=== PATIENT | male | born 1945 | race Caucasian/White ===

== ENCOUNTER 2019-10-09 12:37 | Emergency (ER) | payer MEDICARE, SELFPAY ==
[2019-10-09 12:39] VITALS: BP 133/69; PULSE 87; RESP 20; TEMP 36.8; O2SAT 98; BMI 24.5
--- NOTE | 2019-10-09 13:02 | EKG12_ITS ---
Test Reason : SOB Blood Pressure : / mmHG Vent. Rate : 063 BPM Atrial Rate : 063 BPM P-R Int : 218 ms QRS Dur : 094 ms QT Int : 384 ms P-R-T Axes : 026 -22 -04 degrees QTc Int : 392 ms Sinus rhythm with 1st degree A-V block Otherwise normal ECG Confirmed by MARYJO POSEY ([id number]), supervising editor news reel HELLEN MCCORMACK ([id number]) on 10/10/2019 3:01:24 PM Referred By: GEORGE Confirmed By:MARYJO POSEY
--- NOTE | 2019-10-09 13:02 | RAD_ITS ---
EXAM DESCRIPTION: PORTABLE AP CHEST CLINICAL HISTORY: 74 years Male, SOB, general illness x 1 week SOB, general illness x 1 week COMPARISON: None FINDINGS: The thorax is intact. The heart and mediastinum appear to be within normal limits. In the right lung apex there is an ovoid area of increased density with ill-defined hazy margins probably representing a focal pneumonic consolidation. The left lung appears to be normal. RAD/Chest 1 View (Portable) IMPRESSION: A focal pneumonic consolidation is noted in the right upper lobe. Electronically Signed: Fran Springer, at 14:34 EST Tel , Service support ,
[2019-10-09 13:08] VITALS: PULSE 74; RESP 14; TEMP 36.7; O2SAT 100
--- NOTE | 2019-10-09 13:12 | ED.RN ---
NO OLD EKG
[2019-10-09 13:17] VITALS: PULSE 84; RESP 16
[2019-10-09] MEDS: Ipratropium/Albuterol Sulfate 3 ML AMPUL.NEB INHALATION (13:17)
[2019-10-09 13:21] VITALS: O2SAT 100
--- NOTE | 2019-10-09 13:22 | CT_ITS ---
STUDY: CT SOFT TISSUE NECK WITH CONTRAST REASON FOR EXAM: Male, 74 years old. SORE THROAT RADIATION DOSAGE (If Supplied By Facility): CTDIvol = ( 19.75 ) mGy, DLP = ( 626.41 ) mGycm TECHNIQUE: The patient was scanned in a multi-detector CT scanner. High resolution transaxial imaging was performed following intravenous administration of IV 75mL Isovue-300. Sagittal and coronal images were reconstructed. Individualized dose optimization techniques were used for this CT. COMPARISON: None. FINDINGS: Normal bilateral parotid glands. 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 Normal bilateral parapharyngeal spaces. Normal bilateral carotid spaces. Normal bilateral sublingual and submandibular glands and spaces. Normal visualized nasopharynx. Normal retropharyngeal space. Normal perivertebral space. Normal visualized bilateral faucial tonsils. The visualized tongue, tongue base and oropharynx are normal. The visualized cervical lymph nodes (levels I-) are within normal size limits, and maintain normal morphology. There is no demonstrated solid or cystic mass lesion. There is no abnormal contrast enhancement. Normal epiglottis, bilateral vallecula and hypopharynx. The pre-epiglottic and paraglottic adipose spaces are normal. Normal visualized bilateral piriform sinuses, aryepiglottic folds, vocal cords, and arytenoid-cricoid articulations. Normal subglottic trachea. A 1.8 x 1.6 cm masslike lesion seen in the mid right thyroid of uncertain etiology. A thyroid ultrasound is recommended for further evaluation. Left lobe of the thyroid is normal.. Normal visualized pulmonary apices. Normal visualized paranasal sinuses. Normal visualized cervical spine. CT/Soft Tissue Neck WITH Contrast IMPRESSION: 1. Calcium tonsils and cervical soft tissues appear to be normal. 2. A 1.6 x 1.8 cm masslike lesion is seen in the right mid thyroid of uncertain etiology and a thyroid ultrasound is recommended for further evaluation. Electronically Signed: Fran Springer, at 15:02 EST Tel , Service support ,
[2019-10-09 13:26] LABS: Absolute Lymphocyte Count 1.54 X10^3/uL (0.83-4.51); Absolute Neutrophil Count 3.8 X10^3/uL (2.0-7.7); Basophil# 0.03 X10^3/uL; Basophil% 0.5 % (0-1); Eosinophil# 0.11 X10^3/uL; Eosinophils% 1.9 % (0-5); Hemoglobin 12.2 g/dL (13.0-16.5); Lymphocyte # 1.54 X10^3/ul (4.0); Lymphocyte % 26.5 % (19-41); Mean Corpuscular Hgb 32.5 pg (27.0-32.0); Mean Corpuscular Volume 98.7 fL (80-94); Mean Platelet Vol. 9.5 fl (6.2-12.0); Monocyte# 0.35 X10^3/uL; NRBC Flagged by Analyzer 0 % (0-5); Neutrophil # 3.76 X10^3/uL (2.7-7.7); Neutrophil % 64.8 % (47-70); Platelet Count 204 K/mm3 (150-450); RBC Distribution Width CV 12.5 % (11.6-14.6); RBC Distribution Width SD 45.1 fl (35.1-43.9); Red Blood Count 3.75 M/mm3 (4.6-6.2); White Blood Count 5.8 K/mm3 (4.4-11.0)
[2019-10-09 13:44] LABS: BNP,B-Type NATRIURETIC PEPTIDE 39.2 pg/mL (0-100)
[2019-10-09 13:45] LABS: Anion Gap 4 (5-15); BUN 15 mg/dL (7-18); BUN/Creat Ratio 14.4 RATIO (10-20); Calcium,Total 9.1 mg/dL (8.5-10.1); Chloride 109 mmol/L (98-107); Creatinine, Serum 1.04 mg/dL (0.70-1.30); EST Glomerular Filtration Rate 74 mL/min (>60); Est Glom Filt Rate - Afr Amer 90 mL/min (>60); Estimated Creatinine Clearance 63.26 ml/min; Glucose 95 mg/dL (74-106); Sodium Level 141 mmol/L (136-145)
[2019-10-09 15:00] VITALS: BP 126/87; PULSE 74; RESP 16; O2SAT 98
--- NOTE | 2019-10-09 15:35 | ED.VIS.GEN ---
History of Present Illness Chief Complaint: Shortness of Breath Informant: Patient Onset: Weeks Maximum Severity: Mild Narrative: Fever cough sore throat runny nose body aches for 2 weeks, history of CAD that is stable no history of cardiopulmonary disease otherwise, history of COPD or asthma, He reports that basically for the last week she has had harsh cough fever sore throat no flu vaccination, normal bowel bladder habits cough occasionally productive usually dry Past Medical History - Allergies and Home Meds Allergies/Adverse Reactions: Allergies No Known Allergies Allergy (Verified 10/09/19 13:06) Primary Care Physician: Care Physician,No Primary [Primary Care Provider] - Past Medical History: - - History of CAD he indicates he has [place] new blood vessels perfusing areas of CAD Smoking Status: Former smoker Review of Systems General: Denies: Chills, Fever, Sweats Eyes: Denies: Visual changes - bilaterally, Diplopia ENT: Denies: Rhinorrhea, Sore throat Cardiovascular: Denies: Chest pain, Palpitations Respiratory: Reports: Dyspnea, Cough. Denies: Dyspnea on exertion Gastrointestinal: Denies: Abdominal pain, Nausea, Vomiting, Diarrhea, Melena, Hematochezia Genitourinary: Denies: Dysuria, Hematuria, Frequency Musculoskeletal: Denies: Back pain, Extremity Pain Skin: Denies: Rash, Wounds Neurological: Denies: Headache, Weakness, Numbness Physical Exam Vital Signs/Narrative: Vital Signs Temp Pulse Resp BP Pulse Ox 10/09/19 15:00 74 16 126/87 H 98 10/09/19 13:17 84 16 10/09/19 13:08 98.1 F 74 14 100 10/09/19 12:39 98.2 F 87 20 H 133/69 H 98 General: Well nourished, Well developed, No Acute Distress Head: Normocephalic, Atraumatic Eyes: Perrl, EOMI ENT: Moist mucous membranes, No rhinorrhea Neck: Supple, Nontender Cardiovascular: Regular rate, Regular rhythm, No murmurs Respiratory: No distress, CTA bilaterally, Chest nontender Abdomen: Soft, Nontender, Nondistended, Normal bowel sounds Back: Nontender, Normal Inspection Extremities: Nontender, No edema Skin: Normal color, No rash Neurological: Alert, Oriented x3, Cranial nerves II-XII grossly intact, Normal Strength, Normal Sensation Psychological: Normal affect, Normal Mood Diagnostic/Tx/Re-eval - Medical Decision Making Patient is in no distress his vital signs are unremarkable his pulse ox is 99% is afebrile, His EKG shows a sinus rhythm rate of about 60 no acute injury pattern intervals within normal range His chest x-ray shows a right upper lobe infiltrate, his labs are generally unremarkable, CT of the neck soft tissue related to his severe sore throat was done and it shows a 2 cm nodule involving the right thyroid cannot exclude mass airway epiglottis normal, strep throat screen came back positive On reevaluation patient is resting comfortably bed discussed all the above discussed inpatient versus outpatient management he would like to go home he will be started on Levaquin for all the above, he understands need for close outpatient follow-up and will see his PCP, with regard to the thyroid lesion he indicates he has had that in the past he is under the care of director of community life at 1 point time in [facility] who did testing and told him it needed follow-up and he will follow-up for that condition and return for change in symptoms Home stable Impression final right upper lobe pneumonia, strep pharyngitis positive, 2 cm thyroid lesion ED Disposition - Plan for ED Patient: Diagnosis: Pneumonia, strep pharyngitis Instructions: PNEUMONIA (Adult), PHARYNGITIS, Strep (Confirmed) Prescriptions: Levofloxacin 750 mg PO DAILY #10 tab Prescription Printed Naproxen [Naprosyn] 500 mg PO BID PRN #20 tab Prescription Printed Hydrocodone Bitart/Apap 5-325 [[place] 5MG-325MG] 1 tab PO Q4H PRN PRN 2 Days #7 tab PRN Reason: Pain Prescription Printed Albuterol Inhaler [Ventolin Hfa] 1 - 2 puff INHALATION Q4H PRN PRN #1 inhaler PRN Reason: Wheezing Prescription Printed Referrals: Care Physician,No Primary [Primary Care Provider] -
[2019-10-09] MEDS: levoFLOXacin 750 MG Tablet PO (16:01)
== END 2019-10-09 16:04 | disposition home or self-care (01) ==
LOC: ED 13:29
PROVIDERS: Emergency Provider Emergency Medicine
DX: J18.9 Pneumonia, unspecified organism (principal); J02.0 Streptococcal pharyngitis; E04.1 Nontoxic single thyroid nodule; I25.10 Atherosclerotic heart disease of native coronary artery without angina pectoris; J44.9 Chronic obstructive pulmonary disease, unspecified; Z87.891 Personal history of nicotine dependence
CPT/HCPCS: 70491; 71045; 80048; 83880; 84484; 85025; 87804; 87880; 93005; 94640; 96360; 99285; J7040; Q9967; A4216

== ENCOUNTER 2019-10-30 17:28 | Emergency (ER) | payer MEDICARE, SELFPAY ==
[2019-10-30 17:29] VITALS: BP 129/85; PULSE 82; RESP 16; TEMP 37.1; O2SAT 99; BMI 24.7
--- NOTE | 2019-10-30 17:46 | RAD_ITS ---
STUDY: X-RAY CHEST REASON FOR EXAM: Male, 74 years old. Cough. Shortness of breath. TECHNIQUE: Frontal and lateral views of the chest COMPARISON: 10/09/2019 FINDINGS: The lungs are clear. There are no pleural effusions. There is no pneumothorax. The heart is normal in size. The visualized osseous structures are within normal limits. RAD/Chest PA and Lateral IMPRESSION: No acute thoracic pathology. Electronically Signed: Ruben Kumar, at 18:26 EDT Tel , Service support ,
--- NOTE | 2019-10-30 17:50 | EKG12_ITS ---
Test Reason : CP Blood Pressure : / mmHG Vent. Rate : 088 BPM Atrial Rate : 088 BPM P-R Int : 178 ms QRS Dur : 092 ms QT Int : 352 ms P-R-T Axes : 033 -36 011 degrees QTc Int : 425 ms Sinus rhythm with frequent Premature ventricular complexes Left axis deviation Possible Inferior infarct , age undetermined Abnormal ECG Confirmed by ARI HAGAN, ANDRA ([id number]), multimedia editor HELLEN MCCORMACK ([id number]) on 11/05/2019 11:17:53 AM Referred By: SYLWIA Confirmed By:NONI CHAPMAN MD
--- NOTE | 2019-10-30 17:51 | ED.DCSUM_ITS ---
History of Present Illness Chief Complaint: Chest Pain Informant: Patient Onset: Weeks - 2 Timing: Continuous Quality: Aching Location: Right Chest - without radiation Current Severity: Moderate Maximum Severity: Moderate Worsened By: Breathing. Not Worsened By: Movement of Arm, Movement of Torso Relieved By: Rest Associated Symptoms: Nausea, Dyspnea. Negative for: Vomiting, Diaphoresis, Cough, Fever, Lightheadedness, Palpitations Narrative: Patient states he is having pleuritic right-sided chest pain that is similar to when he had pneumonia last month, he was admitted to the hospital. All of the symptoms went away, he never had a cough and does not now. He has developed the pain again it has been present for 2 weeks now. He had fevers before but not in the past 2 weeks. He has had no travel out of the area recently. He has had some mild shortness of breath. No leg swelling or pain. No history of DVT or PE and takes no anticoagulants. Some nausea, with decreased appetite but no vomiting or abdominal pain. States he has a history of coronary disease, has never had intervention and does not have any history of lung disease and stop smoking 23 years ago. - Past Medical History (1) CAD (coronary artery disease), [place] coronary artery Status: Chronic Past Medical History - Allergies and Home Meds Allergies/Adverse Reactions: Allergies No Known Allergies Allergy (Verified 10/30/19 17:28) Primary Care Physician: [facility] Doctor,Out of [NON-STAFF] - Lives: Alone Smoking Status: Former smoker Review of Systems General: Denies: Chills, Fever, Sweats Eyes: Denies: Visual changes - bilaterally, Diplopia ENT: Denies: Bilateral ear pain, Rhinorrhea, Sore throat Cardiovascular: Reports: Chest pain. Denies: Palpitations Respiratory: Reports: Dyspnea. Denies: Cough, Dyspnea on exertion, Orthopnea Gastrointestinal: Reports: Nausea, Constipation. Denies: Abdominal pain, Vomiting, Diarrhea, Melena, Hematochezia Genitourinary: Denies: Dysuria, Hematuria, Frequency Musculoskeletal: Denies: Back pain, Swelling, Extremity Pain Skin: Denies: Rash, Wounds Neurological: Denies: Headache, Weakness, Numbness Physical Exam Vital Signs/Narrative: Vital Signs Temp Pulse Resp BP Pulse Ox 10/30/19 17:29 98.8 F 82 16 129/85 H 99 Inital Vital Signs reviewed: Yes General: Well nourished, Well developed, No Acute Distress Head: Normocephalic, Atraumatic Eyes: Perrl, EOMI ENT: Moist mucous membranes, No rhinorrhea Neck: Supple, Nontender, No lymphadenopathy, No JVD Cardiovascular: Regular rate, Regular rhythm, No murmurs Respiratory: No distress, CTA bilaterally, Chest nontender Abdomen: Soft, Nontender, Nondistended, Normal bowel sounds Back: Nontender, Normal Inspection. Negative for: CVA tenderness Extremities: Nontender, No edema. Negative for: Calf Tenderness Skin: Normal color, No rash, No Trauma Neurological: Alert, Oriented x3, Cranial nerves II-XII grossly intact, Normal Strength, Normal Sensation Psychological: Normal affect, Normal Mood Diagnostic/Tx/Re-eval Impressions Chest X-Ray 10/30/19 17:46 IMPRESSION: No acute thoracic pathology. Electronically Signed: Ruben Stacy, at 18:26 EDT Tel , Service support , Chest CTA 10/30/19 20:02 IMPRESSION: Mild emphysema. No pulmonary infiltrates or pleural effusions. No evidence of pulmonary embolus. No evidence of thoracic aortic aneurysm or dissection. Coronary artery disease. Electronically Signed: Rubenraina Kumar, at 20:38 EDT Tel , Service support , 10/30/19 17:46 Chest PA and Lateral [RAD] Stat 10/30/19 20:02 CTA Chest W/WO Contrast [CT] Stat 10/30/19 18:00 Mucosa - Nasopharyngeal Influenza Types A,B Direct FA (KELLEY) - Final Laboratory Results 10/30/19 10/30/19 10/30/19 17:35 17:35 17:35 WBC 4.3 L RBC 3.92 L Hgb 12.6 L Hct 37.8 L MCV 96.4 H MCH 32.1 H MCHC 33.3 RDW Std Deviation 44.0 H RDW Coeff of [place] 12.5 Plt Count 205 MPV 9.5 Immature Gran % (Auto) 0.200 Neut % (Auto) 57.3 Lymph % (Auto) 30.3 [place] % (Auto) 11.5 H Eos % (Auto) 0.5 Baso % (Auto) 0.2 Absolute Neuts (auto) 2.4 Absolute Lymphs (auto) 1.29 Nucleated RBC % 0 D-Dimer Quant (PE/DVT) 1.62 H* Sodium 142 Potassium 3.6 Chloride 107 Carbon Dioxide 26.0 Anion Gap 9 BUN 22 H Creatinine 1.06 Estim Creat Clear Calc 62.07 Est GFR (MDRD) Af Amer 88 Est GFR (MDRD) Non-Af 73 BUN/Creatinine Ratio 20.8 H Glucose 99 Calcium 9.1 Troponin I < 0.015 - Rhythm Strip Rhythm Strip: Sinus Rhythm Rate: 88 Ectopy: PVC(s) - EKG Initial EKG Interpretation: Sinus Rhythm, No Acute Injury Pattern, - - left axis. PVCs. Treatment: Toradol IV REILLY Risk: Age >/= 65, H/O CAD Score: 2 - Medical Decision Making Patient's cardiac work-up is negative. Since his chest x-ray was normal and did not reveal an explanation for his symptoms, d-dimer was added onto his blood work and is significantly elevated at 1.6. Therefore CT angiography of the chest was obtained, it shows no evidence of a PE, infiltrate, or other acute pathology. Therefore, I suspect he has pleurisy causing his discomfort. He was given a dose of Toradol, and he is comfortable with being discharged home. He asks for a jar of magnesium citrate for his constipation which was also given to him. Patient does not have COVID-19 exposure and is not critically ill or clinically septic, has not traveled to/from a region with a CDC level 2 or 3 travel health notice, vital signs are stable without hypoxia, is not ill enough to require admission to the hospital, and at this time does not meet current [facility] requirements for testing for COVID-19. He will follow up with his doctor. ED Disposition - Plan for ED Patient: Disposition: Home or Assisted Living Diagnosis: Pleurisy Instructions: Pleurisy Referrals: [facility] Doctor,Out of [NON-STAFF] - 1 Week if not improving
[2019-10-30 18:00] LABS: Absolute Lymphocyte Count 1.29 X10^3/uL (0.83-4.51); Absolute Neutrophil Count 2.4 X10^3/uL (2.0-7.7); Basophil# 0.01 X10^3/uL; Basophil% 0.2 % (0-1); Eosinophil# 0.02 X10^3/uL; Eosinophils% 0.5 % (0-5); Hematocrit 37.8 % (40-54); Hemoglobin 12.6 g/dL (13.0-16.5); Lymphocyte # 1.29 X10^3/ul (4.0); Lymphocyte % 30.3 % (19-41); Mean Corp Hgb Conc 33.3 g/dL (32-36); Mean Corpuscular Hgb 32.1 pg (27.0-32.0); Mean Corpuscular Volume 96.4 fL (80-94); Mean Platelet Vol. 9.5 fl (6.2-12.0); Monocyte# 0.49 X10^3/uL; Monocyte% 11.5 % (0-10); NRBC Flagged by Analyzer 0 % (0-5); Neutrophil # 2.44 X10^3/uL (2.7-7.7); Neutrophil % 57.3 % (47-70); Platelet Count 205 K/mm3 (150-450); RBC Distribution Width CV 12.5 % (11.6-14.6); Red Blood Count 3.92 M/mm3 (4.6-6.2); White Blood Count 4.3 K/mm3 (4.4-11.0)
[2019-10-30] MEDS: 0.9% Normal Saline 1,000 ML 150 ML IV (18:01)
[2019-10-30 18:13] LABS: Anion Gap 9 (5-15); BUN 22 mg/dL (7-18); BUN/Creat Ratio 20.8 RATIO (10-20); Calcium,Total 9.1 mg/dL (8.5-10.1); Chloride 107 mmol/L (98-107); Creatinine, Serum 1.06 mg/dL (0.70-1.30); EST Glomerular Filtration Rate 73 mL/min (>60); Est Glom Filt Rate - Afr Amer 88 mL/min (>60); Estimated Creatinine Clearance 62.07 ml/min; Glucose 99 mg/dL (74-106); Potassium 3.6 mmol/L (3.5-5.1); Sodium Level 142 mmol/L (136-145)
[2019-10-30 18:30] VITALS: BP 126/74; PULSE 79; RESP 12; O2SAT 95
[2019-10-30 19:23] VITALS: BP 140/68; PULSE 74; RESP 13; O2SAT 97
[2019-10-30 19:54] LABS: D-Dimer Quantitative (DVT/PE) 1.62 FEU/ug/m (0.27-0.49)
--- NOTE | 2019-10-30 20:02 | CT_ITS ---
STUDY: CTA CHEST REASON FOR EXAM: Male, 74 years old. PLEURITIC CP WITH ELEVATED D-DIMER, SOB ON EXERTION, HTN, RECENT PNEUMONIA RADIATION DOSAGE (If Supplied By Facility): CTDIvol = ( 13.58 ) mGy, DLP = ( 382.77 ) mGycm TECHNIQUE: The examination was performed with the intravenous administration of IV 75mL Isovue-370. Post-processing of the angiographic images was performed, with multiplanar reformation and 3D reconstruction. Individualized dose optimization techniques were used for this CT. COMPARISON: None. FINDINGS: There is a 1.8 cm hypodense nodule in the right lobe of the thyroid which is stable when compared with a neck CT dated 10/09/2019. Normal enhancement of the main pulmonary artery and right and left pulmonary arteries. Normal enhancement of the bilateral peripheral pulmonary arteries. There is no demonstrated pulmonary embolism. Normal thoracic aorta and visualized great vessels. There is no demonstrated aortic dissection. Normal heart and pericardium. There are calcifications of the coronary arteries. Normal mediastinum. Normal hilar regions. Normal visualized trachea and bronchi. The lungs are well expanded. Mild emphysema. No pulmonary infiltrates. Normal pleura. Normal chest wall structures. Normal osseous structures. Normal visualized upper abdomen. CT/CTA Chest W/WO Contrast IMPRESSION: Mild emphysema. No pulmonary infiltrates or pleural effusions. No evidence of pulmonary embolus. No evidence of thoracic aortic aneurysm or dissection. Coronary artery disease. Electronically Signed: Ruben Kumar, at 20:38 EDT Tel , Service support ,
[2019-10-30 20:03] VITALS: BP 129/84; PULSE 78; RESP 23; O2SAT 98
[2019-10-30] MEDS: Ketorolac 15 MG/ML Vial IV (21:06)
[2019-10-30 21:07] VITALS: BP 128/82; PULSE 76; RESP 16; O2SAT 99
[2019-10-30] MEDS: Magnesium Citrate 300 ML 150 ML PO (21:07)
== END 2019-10-30 21:12 | disposition home or self-care (01) ==
PROVIDERS: Emergency Provider Emergency Medicine
DX: R09.1 Pleurisy (principal); I25.10 Atherosclerotic heart disease of native coronary artery without angina pectoris; Z87.891 Personal history of nicotine dependence
CPT/HCPCS: 71046; 71275; 80048; 84484; 85025; 85379; 87804; 93005; 96361; 96374; 99285; J7030; Q9967

== ENCOUNTER 2020-05-05 12:14 | Emergency (ER) | payer MEDICARE, SELFPAY ==
[2020-05-05 12:15] VITALS: BP 129/77; PULSE 95; RESP 18; TEMP 36.6; O2SAT 99; BMI 24.2
--- NOTE | 2020-05-05 12:18 | ED.RN ---
PT REPORTS EXPOSED TO A COVID POSITIVE PERSON GREATER THAN 14 DAYS AGO, THE PERSON WAS OUT OF QUARINTINE.
--- NOTE | 2020-05-05 12:36 | ED.DCSUM_ITS ---
History of Present Illness Chief Complaint: Abd Pain Informant: Patient Narrative: 75-year-old male presents with history of cough for the last 7 days. He states is nonproductive. He has a mildly sore throat. He is not had a fever that he knows of but he states he gets headaches and takes Tylenol and his headaches go away. He does not have myalgias, loss of taste and smell. He does not feel short of breath. He is not having any chest pain. States I am only here to be tested for COVID because my girlfriend wants me to be tested. He also states that he feels otherwise well has been walking about 2 miles a day without difficulty. - Past Medical History (1) CAD (coronary artery disease), [place] coronary artery Status: Chronic Past Medical History - Allergies and Home Meds Allergies/Adverse Reactions: Allergies No Known Allergies Allergy (Verified 05/05/20 12:15) Primary Care Physician: Arely Diaz,Out of [Primary Care Provider] - Past Medical History: - - Reviewed and problem list Surgical History: noncontributory Lives: Spouse/ Significant Other Smoking Status: Former smoker Review of Systems General: Denies: Chills, Fever, Sweats Eyes: Denies: Visual changes - bilaterally, Diplopia ENT: Denies: Rhinorrhea, Sore throat Cardiovascular: Denies: Chest pain, Palpitations Respiratory: Reports: Cough. Denies: Dyspnea, Sputum, Dyspnea on exertion Gastrointestinal: Denies: Abdominal pain, Nausea, Vomiting, Diarrhea, Melena, Hematochezia Genitourinary: Denies: Dysuria, Hematuria, Frequency Musculoskeletal: Denies: Back pain, Extremity Pain Skin: Denies: Rash, Wounds Neurological: Reports: Headache. Denies: Weakness, Numbness Physical Exam Vital Signs/Narrative: Vital Signs Temp Pulse Resp BP Pulse Ox 05/05/20 12:15 97.8 F 95 18 129/77 H 99 Inital Vital Signs reviewed: Yes General: Well nourished, No Acute Distress Head: Normocephalic, Atraumatic Eyes: Perrl, EOMI ENT: Moist mucous membranes, No rhinorrhea Cardiovascular: Regular rate, Regular rhythm Respiratory: No distress, CTA bilaterally Skin: Normal color, No rash. Negative for: Cyanosis Neurological: Alert, Oriented x3 Psychological: Normal affect, Normal Mood Diagnostic/Tx/Re-eval - Medical Decision Making Patient presents for history of cough which he states is now resolving. He has no red flag signs or symptoms. He does not want a chest x-ray he just wants to be tested for COVID and be sent home. He will quarantine until he gets his test results. He is given return precautions. Patient stable for discharge. Impression: 1. Cough ED Disposition - Plan for ED Patient: Disposition: Home or Assisted Living Instructions: ED Upper Resp Infec No Abx Tx Referrals: [facility] Doctor,Out of [Primary Care Provider] -
[2020-05-05 13:05] VITALS: RESP 16
== END 2020-05-05 13:27 | disposition home or self-care (01) ==
LOC: ED 13:18
PROVIDERS: Emergency Provider Student in an Organized Health Care Education/Training Program
DX: R05 Cough (principal); I25.10 Atherosclerotic heart disease of native coronary artery without angina pectoris; Z87.891 Personal history of nicotine dependence
CPT/HCPCS: 87635; 99282; C9803; U0003

== ENCOUNTER 2022-08-31 13:53 | Emergency (ER) | payer MEDICARE, MEDICAID, SELFPAY ==
[2022-08-31 13:55] VITALS: BP 134/86; PULSE 94; RESP 16; TEMP 36.6; O2SAT 98; BMI 23.6
--- NOTE | 2022-08-31 14:57 | ED.VIS.GI ---
HPI HPI - GI History of Present Illness Chief Complaint: Constipation Detail of Chief Complaint: Something nearby hernia scar Informant: patient Abdominal Pain/Flank Pain Onset: Yesterday Context: Sudden Onset Timing: Continuous and Waxes and wanes Quality: Aching and Cramping Location: - (Proximity of hernia scar incision left) Current Severity: Mild Maximum Severity: Moderate Worsened by: - (Palpation); Not Worsened By Car ride, Food or Movement Relieved by: Not Relieved By Antacids, Food, Nothing or Remaining Still Nausea/Vomiting/Emesis GI Symptom: Negative for Nausea or Vomiting Diarrhea/Melena/Hematochezia GI Symptom: Negative for Diarrhea, Melena or Hematochezia Associated Symptoms Associated Symptoms: Negative for Dysuria, Frequency, Hematuria or Urgency Narrative Narrative: Patient is a 76-year-old male with history of coronary disease, hypercholesterolemia, BPH who had a left inguinal hernia repair by Dr. Guzman at [facility] 10 years ago. He now resides in the [facility]. He is a smoker. He states last evening when he was going to the bathroom he felt a ripping tearing sensation. He states he was not able to have bowel movement afterwards. He presents because of pain and would like something done. He denies nausea, vomiting or abdominal distention. Patient denies history of diverticulosis or diverticulitis. Patient denies black or maroon-colored stool. Patient is not on an anticoagulant. Patient denies pain in his scrotum or testicle. He denies pain radiating to the right or to the left flank. He denies dysuria, frequency, urgency or hematuria. He denies history of renal or ureteral lithiasis. There is no history of trauma. He has not noted a rash Prior similar symptoms: Yes (With hernia 10 years ago) Recent Illness/Hospitalization: No (Last visit to the ER/hospital was in 2019) [facility] Medical History (Updated 08/31/22 @ 15:[address] Kwame Pimentel MD) CAD (coronary artery disease) Hyperlipidemia Left inguinal hernia Home Medications isosorbide mononitrate 30 mg tablet,extended release 24 hr 30 mg PO DAILY 10/09/19 [History Last Taken Unknown] nitroglycerin 0.4 mg sublingual tablet 0.4 mg SL PRN PRN chest pain 10/09/19 [History Last Taken Unknown] pramipexole 0.125 mg tablet 1 tab PO DAILY 10/09/19 [History Last Taken Unknown] quetiapine 100 mg tablet 200 mg PO DAILY 10/09/19 [History Last Taken Unknown] rosuvastatin 20 mg tablet 5 mg PO DAILY 10/09/19 [History Last Taken Unknown] tamsulosin 0.4 mg capsule 1 tab PO BID 10/09/19 [History Last Taken Unknown] Cholecalciferol (Vitamin D3) [Vitamin D3] 5,000 unit PO DAILY 10/30/19 [History Last Taken Unknown] Lactobacillus rhamnosus GG 20 billion cell capsule 1 ea PO DAILY 10/30/19 [History Last Taken Unknown] sennosides 8.6 mg-docusate sodium 50 mg tablet 1 tab PO DAILY 10/30/19 [History Last Taken Unknown] Allergy/AdvReac Type Severity Reaction Status Date / Time No Known Allergies Allergy Verified 08/31/22 13:55 Social History (Updated 08/31/22 @ 15:[address] Kwame Pimentel MD) household members: none Smoking Status: Former smoker substance use type: does not use ROS ROS ED Constitutional Constitutional ED: Denies chills, fever(s), subjective, sweats or weight loss ENT ENT ED: Denies ear pain, rhinorrhea or sore throat Cardiovascular Cardiovascular: Denies chest pain, palpitations or racing heartbeat Respiratory/Chest Respiratory/Chest: Denies cough, dyspnea or dyspnea on exertion Gastrointestinal Gastrointestinal: Reports abdominal pain and constipation; Denies diarrhea, melena, nausea or vomiting Genitourinary Genitourinary ED: Denies dysuria, hematuria or urinary frequency Musculoskeletal Musculoskeletal: Denies arthralgias, back pain, myalgias or neck pain Psychiatric Psychiatric: Denies anxiety or depression Endocrine Endocrinology: Denies polydipsia, polyphagia or polyuria EXAM Physical Exam Const Vital Signs: 08/31/22 13:55 Temperature 97.9 F Temperature Source Temporal Pulse Rate 94 Respiratory Rate 16 Blood Pressure 134/86 H Blood Pressure Mean 102 Pulse Ox 98 Oxygen Delivery Method Room Air Negative for well nourished or well developed General Appearance ED: NAD; Negative for well developed or pallor HEENT Reports TM's clear and moist mucous membranes HEENT Narrative: Nares patent. Mucosa moist. Teeth normal. Negative for normocephalic or atraumatic Tympanic Membrane ED: Yes TM's clear Eyes PERRL and EOMs intact bilaterally General Eye ED: Negative for pale conjunctiva Neck no lymphadenopathy, supple and no JVD Resp normal respiratory effort and clear to auscultation bilaterally Cardio regular rate, regular rhythm, S1 normal heart sound, S2 normal heart sound and no murmurs GI non-distended and no masses; Negative for non-tender Auscultation: hypoactive bowel sounds Palpation: soft, tender other (Left inguinal hernia repair site.), guarding LLQ (2D palpation over left inguinal hernia incision site.) and hernia ventral (Left inguinal incision site); Negative for rigid, hepatomegaly, splenomegaly, mass, pulsatile mass or rebound tenderness present Narrative: Testes centered bilaterally. No evidence of direct or indirect hernia. There is no tenderness of the testicles. There is no swelling of the scrotum. Back/Spine no CVA tenderness Lumbar Spine / Lower Back: Negative for lumbar spinal tenderness Extremity full ROM General Extremety ED: Negative for edema or tenderness General Extremity: Negative for edema Neuro CN's II-XII intact bilaterally Skin no wounds General Skin Exam: Negative for jaundice or pallor MDM MDM MDM Narrative Medical decision making narrative: Using outside source patient did have repair of inguinal hernia at [facility] approximately 10 years ago. He has had no recent hospitalizations. Patient's history and physical is consistent with incisional hernia status post left inguinal hernia repair. The hernia was reducible. Patient was referred to Dr. Rodney Lau, who is on for general surgery. Since there is no nausea vomiting distention peritoneal findings laboratory studies and imaging is not required. Discharge Plan Triage Chief Complaint: Constipation ED Provider: MargaritoKwame Dx/Rx/DC Orders Clinical Impression: Incisional hernia, without obstruction or gangrene, History of CAD (coronary artery disease), Hx of hypercholesterolemia, History of BPH Instructions: ED Hernia (Adult) Prescriptions: No Action isosorbide mononitrate 30 mg tablet extended release 24 hr 30 mg PO DAILY Label Comments: TAKE 1 TABLET BY MOUTH ONCE DAILY quetiapine 100 MG tablet 200 mg PO DAILY tamsulosin 0.4 mg capsule 1 tab PO BID pramipexole 0.125 mg tablet 1 tab PO DAILY Label Comments: TAKE 1 TABLET BY MOUTH NIGHTLY nitroglycerin 0.4 MG tablet, sublingual 0.4 mg SL PRN PRN (Reason: chest pain) rosuvastatin 20 MG tablet 5 mg PO DAILY sennosides-docusate sodium 1 EACH tablet 1 tab PO DAILY Lactobacillus rhamnosus GG 1 EACH capsule 1 ea PO DAILY Cholecalciferol (Vitamin D3) [Vitamin D3] 5,000 UNIT capsule 5,000 unit PO DAILY Primary Care Provider: Harsh Rios Referrals: Rodney Lau MD [Med Staff - Active Staff] - 5-7 Days Harsh Rios MD [Primary Care Provider] - Activity Restrictions/Additional Instructions: Return if you have severe pain, there is a bulge in your and able to push it back in, abdominal distention, or nausea and vomiting. Disposition Disposition: Home, Self Care
== END 2022-08-31 15:18 | disposition home or self-care (01) ==
PROVIDERS: Emergency Provider Emergency Medicine; PCP Family Medicine; Visit Provider Emergency Medicine
DX: K43.2 Incisional hernia without obstruction or gangrene (principal); I25.10 Atherosclerotic heart disease of native coronary artery without angina pectoris; Z87.891 Personal history of nicotine dependence
CPT/HCPCS: 99282

== ENCOUNTER 2025-07-30 09:34 | Emergency (ER) | payer MEDICARE, MEDICAID, SELFPAY ==
[2025-07-30 09:34] VITALS: BP 133/84; PULSE 87; RESP 20; TEMP 36.6; O2SAT 100
--- NOTE | 2025-07-30 09:54 | EKG12_ITS ---
Test Reason : SOB Blood Pressure : */* mmHG Vent. Rate : 73 BPM Atrial Rate : 73 BPM P-R Int : 218 ms QRS Dur : 92 ms QT Int : 388 ms P-R-T Axes : 8 -28 52 degrees QTcB Int : 427 ms Sinus rhythm with 1st degree A-V block Otherwise normal ECG Confirmed by Marek Gonzalez ([id number]), field map editor RENEE GONZALES ([id number]) on 07/31/2025 10:21:20 AM Referred By: Confirmed By: Marek Gonzalez
--- NOTE | 2025-07-30 09:56 | ED.VIS.DYS ---
HPI History of Present Illness Chief Complaint: Shortness of Breath Informant: patient Onset/Context/Timing Onset: Weeks (3 weeks.) Context: gradual Timing: Continuous Quality: Positive for Wheezing Current Severity: Mild Relieved by: Nothing Associated Symptoms cough Chest Pain: Positive for None Narrative Narrative: 80-year-old male history of CAD states been short of breath with URI symptoms for the last 3 weeks. Nonproductive cough. Intermittent wheezing. Fever as high as 102. No hemoptysis. No pleuritic chest pain. No leg pain or swelling. Denies any recent hospitalization. PE Risk Factors: Negative for Cancer, Prior DVT or PE, Recent immobilization, Recent surgery or Recent travel Recent Illness/Hospitalization: No PFSH [facility] Medical History Left inguinal hernia Hyperlipidemia CAD (coronary artery disease) Home Medications ?Medication ?Instructions ?Recorded ?Last Taken ?Type nitroglycerin 0.4 mg sublingual 0.4 mg SL PRN PRN chest pain 10/09/19 Unknown History tablet tamsulosin 0.4 mg capsule 1 tab PO BID prostate 10/09/19 07/29/25 History isosorbide mononitrate 60 mg 60 mg PO DAILY heart 07/30/25 07/29/25 History tablet,extended release 24 hr prednisone 20 mg tablet 40 mg (2 x 20 mg) PO DAILY 7 days 07/30/25 Unknown Rx #14 tabs quetiapine 200 mg tablet 200 mg PO DAILY mood 07/30/25 07/29/25 History Allergy/AdvReac Type Severity Reaction Status Date / Time No Known Allergies Allergy Verified 07/30/25 09:36 Social History household members: none Smoking Status: Former smoker substance use type: does not use ROS ROS ED ROS Narrative Cough nonproductive. Fever. Shortness of breath. Wheezing. Constitutional Constitutional ED: Reports fever(s) Eyes Eyes: Denies blurry vision Cardiovascular Cardiovascular: Denies chest pain Respiratory/Chest Respiratory/Chest: Reports cough and dyspnea Gastrointestinal Gastrointestinal: Denies abdominal pain Genitourinary Genitourinary ED: Denies dysuria or hematuria Musculoskeletal Musculoskeletal: Denies arthralgias or back pain Integumentary Denies abscess Neurologic Neurologic: Denies headache(s) Psychiatric Psychiatric: Denies anxiety Endocrine Endocrinology: Denies cold intolerance or heat intolerance Hematologic/Lymphatic Hematologic/Lymphatic: Denies easy bleeding, easy bruising or lymphadenopathy Allergic/Immunologic Allergic/Immunologic ED: Denies mouth swelling, tongue swelling or urticaria EXAM Physical Exam Narrative Exam Narrative: Send 9-year-old male sitting upright in bed vital signs stable afebrile. Pulse ox 100% on room air no signs hypoxia. No distress. H EENT exam pupils round react to light. TMs unremarkable. Moist mucous membranes. Posterior pharynx normal. No trouble swallowing. No stridor or drooling. Neck nontender no lymphadenopathy. Trachea midline. Back nontender. Lungs prolonged expiratory phase few scattered wheezes. No rales or rhonchi. Equal symmetric. Heart regular rhythm rate about 85 no murmur. Chest wall ribs nontender. Abdomen soft nontender. Moving all 4 extremities. Normal strength. Normal range of motion. Nontender no edema. Calves nontender no cords. Neurologically he is awake alert. He is answering questions following commands. Const Vital Signs: 07/30/25 09:34 07/30/25 10:11 07/30/25 11:09 Temperature 97.9 F Temperature Source Oral Pulse Rate 87 75 Respiratory Rate 20 H 16 Respiratory Effort Respiratory Depth Respiratory Pattern Blood Pressure 133/84 H Blood Pressure Mean 100 Pulse Ox 100 Oxygen Delivery Method Room Air Room Air 07/30/25 11:10 07/30/25 11:34 07/30/25 13:00 Temperature Temperature Source Pulse Rate 68 68 Respiratory Rate 20 H Respiratory Effort Normal Non-Labored Respiratory Depth Normal Respiratory Pattern Normal Blood Pressure 153/79 H 150/76 H Blood Pressure Mean 103 100 Pulse Ox 100 100 Oxygen Delivery Method Room Air MDM MDM MDM Narrative Medical decision making narrative: 80-year-old male short of breath nonproductive cough for 3 weeks. Differential would include viral syndrome, bronchitis, pneumonia, cardiac etiology which I do not think this is. Underlying COPD which he tells me he does not have a specific diagnosis for. He quit smoking 40 years ago. Chest x-ray, EKG and labs will be obtained. Repeat exam at 1:36 PM. Patient doing much better. Said aerosols and steroids helped. We went over his test results. He is RSV positive. I explained him he does not need an antibiotic. We placed on prednisone 40 m a day for a week. He said he does not need an inhaler. He will be discharged home with outpatient follow-up. Patient is comfortable with the plan. History & Record Review Discussion w/independent historian: Patient Additional record(s) reviewed:: Prior outpatient record, Prior ED visit and Prior labs Lab Data Attestation: I reviewed the patient's lab results. Lab results narrative: Chest x-ray shows chronic changes. CBC shows white count of 5 H&H 12 and 36. Platelets 202. Consistent with prior. Electrolytes show a gap of 10. Normal BUN of 14 creatinine 1.1. Glucose 115. RSV positive. COVID and flu negative. Labs: Laboratory Results - last 24 hr 07/30/25 11:05 WBC 5.1 RBC 3.73 L Hgb 12.0 L Hct 36.4 L MCV 97.6 H MCH 32.2 H MCHC 33.0 RDW Std Deviation 45.2 H RDW Coeff of Stuart 12.5 Plt Count 202 MPV 9.5 Immature Gran % (Auto) 0.200 Neut % (Auto) 59.3 Lymph % (Auto) 29.6 Foster % (Auto) 8.2 Eos % (Auto) 2.3 Baso % (Auto) 0.4 Absolute Neuts (auto) 3.1 Absolute Lymphs (auto) 1.52 Nucleated RBC % 0 Sodium 140 Potassium 3.6 Chloride 106 Carbon Dioxide 24.2 Anion Gap 10 BUN 14 Creatinine 1.19 Estim Creat Clear Calc 50.33 Est GFR (MDRD) Non-Af 62 BUN/Creatinine Ratio 12.1 Glucose 115 H Calcium 9.3 Radiography Chest X-Ray - ED: 2 View, Read by ED Physician, Heart, Lungs, Mediastinum, Bony Structures, No Acute Disease and Chronic Changes Diagnostic Testing: Clinical Impression(s) from Imaging Studies Chest X-Ray 07/30/25 11:19 IMPRESSION: Hyperinflation. Mild scarring at the lung bases. Reading Location: [id number] Chest x-ray, 2 views, AP and lateral, interpreted by myself shows normal cardiac silhouette. No mediastinum. Normal lung foster. No pneumonia. No effusions. No pneumothorax. Chronic changes no acute process. Rhythm Strip Rhythm Strip: Sinus Rhythm Rate: 73 Ectopy: None EKG Initial EKG: Attestation: I personally reviewed and interpreted this EKG as follows: Interpretation: Sinus Rhythm and No Acute Injury Pattern Comments: Normal sinus rhythm rate of 73 no acute signs of PR no ischemia no dysrhythmia. First-degree AV block. Interval to 18. No significant changes from her prior EKG from 2019. Discharge Plan Triage Chief Complaint: Shortness of Breath ED Provider: Pascual Koch Dx/Rx/DC Orders Clinical Impression: RSV bronchitis, History of CAD (coronary artery disease) Instructions: Acute Bronchitis, ED RSV Bronchiolitis Prescriptions: New prednisone 20 mg tablet 40 mg PO DAILY 7 Days Qty: 14 0RF No Action tamsulosin 0.4 mg capsule 1 tab PO BID nitroglycerin 0.4 MG tablet, sublingual 0.4 mg SL PRN PRN (Reason: chest pain) quetiapine 200 mg tablet 200 mg PO DAILY isosorbide mononitrate 60 mg tablet extended release 24 hr 60 mg PO DAILY Primary Care Provider: Oni Helms NP Referrals: Harsh Rios MD [Non-Staff, Family Practice] - 1 Week if not improving Activity Restrictions/Additional Instructions: You have a viral bronchitis called RSV which is respiratory syncytial virus. You did not need antibiotics. Prednisone daily start tomorrow 40 mg a day for 1 week. Follow-up with your doctor if not improving or return if feeling a lot worse. Your labs EKG and x-ray look good. There is no signs of pneumonia. Print Language: Chinese Disposition Disposition: Home, Self Care
[2025-07-30] MEDS: Albuterol 2.5 MG/3 ML VIAL.NEB. INHALATION (10:10)
[2025-07-30 10:11] VITALS: PULSE 75; RESP 16
[2025-07-30 11:08] VITALS: BMI 26.6
--- NOTE | 2025-07-30 11:19 | RAD_ITS ---
PROCEDURE: CHEST PA AND LATERAL 07/30/2025 REASON FOR EXAM: NONPRODUCTIVE COUGH TECHNIQUE: Procedure Code: RADCXR Modality: DX Procedure: CHEST PA AND LATERAL COMPARISON: October 30, 2019. FINDINGS: Hardware: EKG electrodes are seen. Heart: The heart size is normal. Mediastinum: The mediastinal contour is unremarkable. Lungs: Stable mild scarring at the lung bases. Bones: Degenerative changes are identified within the thoracic spine. RAD/Chest PA and Lateral IMPRESSION: Hyperinflation. Mild scarring at the lung bases. Reading Location: [id number]
[2025-07-30 11:31] LABS: Hematocrit 36.4 % (40-54); Hemoglobin 12.0 g/dL (13.0-16.5); Immature Granulocytes Count 0.010 X10^3/uL (0.0-0.0); Mean Corp Hgb Conc 33.0 g/dL (32-36); Mean Corpuscular Volume 97.6 fL (80-94); Mean Platelet Vol. 9.5 fl (6.2-12.0); NRBC Flagged by Analyzer 0 % (0-5); Platelet Count 202 K/mm3 (150-450); RBC Distribution Width CV 12.5 % (11.6-14.6); RBC Distribution Width SD 45.2 fl (35.1-43.9); Red Blood Count 3.73 M/mm3 (4.6-6.2); White Blood Count 5.1 K/mm3 (4.4-11.0)
[2025-07-30 11:34] VITALS: BP 153/79; PULSE 68; O2SAT 100
[2025-07-30 11:52] LABS: Anion Gap 10 (5-15); BUN 14 mg/dL (4-19); BUN/Creat Ratio 12.1 RATIO (10-20); Calcium,Total 9.3 mg/dL (7.6-11.0); Carbon Dioxide 24.2 mmol/L (21.0-32.0); Chloride 106 mmol/L (98-108); Estimated Creatinine Clearance 50.33 ml/min (50-250); Glucose 115 mg/dL (70-99); Potassium 3.6 mmol/L (3.3-5.1)
[2025-07-30 13:00] VITALS: BP 150/76; PULSE 68; RESP 20; O2SAT 100
[2025-07-30 13:48] VITALS: BP 148/86; PULSE 71; RESP 18; TEMP 36.6; O2SAT 98
== END 2025-07-30 13:56 | disposition home or self-care (01) ==
PROVIDERS: Emergency Provider Emergency Medicine; PCP Nurse Practitioner Family; Visit Provider Emergency Medicine
DX: J20.5 Acute bronchitis due to respiratory syncytial virus (principal); J44.0 Chronic obstructive pulmonary disease with (acute) lower respiratory infection; E78.5 Hyperlipidemia, unspecified; I25.10 Atherosclerotic heart disease of native coronary artery without angina pectoris; Z87.891 Personal history of nicotine dependence; R06.02 Shortness of breath; Z79.899 Other long term (current) drug therapy
CPT/HCPCS: 71046; 80048; 85025; 87631; 93005; 94640; 99284; A4216